=== PATIENT | male | born 1965 | race Hispanic/Latino ===

== ENCOUNTER 2018-02-07 20:11 | Emergency (ER) | payer MEDICARE, MEDICAID ==
[2018-02-07 20:58] LABS: #Eosinphils 0.2 thou/uL (0.0-0.7); #Lymphocytes 2.5 thou/uL (1.20-3.40); #Monocytes 0.6 thou/uL (0.11-0.59); %Basophils 0.8 % (0.0-1.0); %Eosinophils 3.6 % (0.0-10.0); %Lymphocytes 39.2 % (21.0-51.0); %Monocytes 9.2 % (0.0-10.0); %Neutrophils 47.3 % (42.0-75.0); Hemoglobin 15.6 g/dL (14.0-18.0); Mean Corpuscular HGB CONC 34.3 g/dL (32.0-36.0); Mean Corpuscular Hemoglobin 29.5 pg (27.0-31.0); Mean Corpuscular Volume 86.2 fL (78.0-98.0); Mean Platelet Volume 7.5 fL (7.4-10.4); Platelet Count 216 thou/uL (130-400); RBC Distribution Width 11.8 % (11.5-14.5); Red Blood Cell (RBC) Count 5.27 mill/uL (4.70-6.10); White Blood Cell (WBC) Count 6.4 thou/uL (4.8-10.8)
[2018-02-07 21:16] LABS: ALT (SGPT) 34 U/L (8-55); AST (SGOT) 25 U/L (5-34); Acetaminophen Less than 6.0 mcg/mL (10.0-30.0); Albumin 4.1 g/dL (3.5-5.0); Alcohol Less than 10 mg/dL (Less than 10); Alkaline Phosphatase 55 U/L (40-150); Anion Gap 13 mmol/L (10-20); BUN (Urea Nitrogen) 10 mg/dL (8.9-20.6); Bilirubin, Total 0.5 mg/dL (0.2-1.2); Calc. Creatinine Clearance 0 mL/min (70-130); Calcium 9.5 mg/dL (7.8-10.44); Carbon Dioxide 24 mmol/L (22-29); Chloride 103 mmol/L (98-107); Estimated GFR-MDRD 89; Globulin 3.2 g/dL (2.4-3.5); Glucose 266 mg/dL (70-105); Potassium 3.8 mmol/L (3.5-5.1); Protein, Total 7.3 g/dL (6.0-8.3); Salicylate Less than 8.0 mg/dL (15.0-30.0); Sodium 136 mmol/L (136-145)
[2018-02-07 22:52] LABS: Bilirubin Negative (Negative); Blood, Urine Negative (Negative); Clarity CLEAR (Clear); Glucose, Urine (Dipstick) >=1000 mg/dL (Negative); Leukocyte Negative (Negative); Nitrite Negative (Negative); Protein, Urine (Dipstick) Negative (Neg-Trace)
[2018-02-07 22:59] LABS: Amphetamine Not Detected (NotDetected); Barbiturates Screen Not Detected (NotDetected); Benzodiazepine Screen Not Detected (NotDetected); Cocaine Metabolite Screen Not Detected (NotDetected); Medtox Control Line Valid? VALID (VALID); Medtox Reader # READER 1; Methadone Not Detected (NotDetected); Methamphetamine Not Detected (NotDetected); Opiate Screen Not Detected (NotDetected); Oxycodone Screen Not Detected (NotDetected); Phencyclidine (PCP) Not Detected (NotDetected); THC/Cannabinoid Screen Detected (NotDetected); Tricyclic Screen Not Detected (NotDetected)
[2018-02-08] MEDS ORDERED: Insulin Regular 300 UNITS/3 ML VIAL ONE (08:40)
[2018-02-08] MEDS ORDERED: Divalproex Sodium 250 MG (DR) TAB PO SCH (09:00)
[2018-02-08] MEDS ORDERED: Divalproex Sodium DR 500 MG TAB PO SCH (09:00)
[2018-02-09] MEDS ORDERED: metFORMIN 500 MG TAB PO SCH ×2 (08:00→21:00)
[2018-02-09] MEDS ORDERED: Lisinopril 5 MG TAB PO SCH (09:00)
[2018-02-09] MEDS ORDERED: Insulin NPH/Reg Insulin Hm 300 UNITS/3 ML VIAL SC SCH (16:30)
[2018-02-09] MEDS ORDERED: Fenofibrate Nanocrystallized 145 MG TAB PO SCH (21:00)
[2018-02-09] MEDS ORDERED: Gabapentin 300 MG CAP PO SCH (21:00)
== END 2018-02-10 12:45 ==
LOC: ERS 20:11
DX: F23 Brief psychotic disorder (principal); E11.9 Type 2 diabetes mellitus without complications; E78.5 Hyperlipidemia, unspecified; I10 Essential (primary) hypertension; F41.9 Anxiety disorder, unspecified; F32.9 Major depressive disorder, single episode, unspecified; Z79.4 Long term (current) use of insulin; Z79.899 Other long term (current) drug therapy
CPT/HCPCS: 36415; 36416; 80053; 80306; 80307; 81003; 84443; 85025; 93005; J1815

== ENCOUNTER 2018-08-02 21:58 | Emergency (ER) | payer MEDICARE, MEDICAID ==
[2018-08-02 22:57] LABS: #Basophils 0.1 thou/uL (0.0-0.2); #Eosinphils 0.3 thou/uL (0.0-0.7); #Lymphocytes 2.1 thou/uL (1.20-3.40); #Monocytes 0.8 thou/uL (0.11-0.59); #Neutrophils 4.2 thou/uL (1.40-6.50); %Basophils 1.1 % (0.0-1.0); %Eosinophils 4.2 % (0.0-10.0); %Lymphocytes 27.7 % (21.0-51.0); %Monocytes 10.5 % (0.0-10.0); %Neutrophils 56.5 % (42.0-75.0); Hemoglobin 13.9 g/dL (14.0-18.0); Mean Corpuscular HGB CONC 34.2 g/dL (32.0-36.0); Mean Corpuscular Volume 84.8 fL (78.0-98.0); Platelet Count 197 thou/uL (130-400); Red Blood Cell (RBC) Count 4.79 mill/uL (4.70-6.10); White Blood Cell (WBC) Count 7.5 thou/uL (4.8-10.8)
[2018-08-02 23:06] LABS: Bilirubin Negative (Negative); Blood, Urine Negative (Negative); Clarity CLEAR (Clear); Glucose, Urine (Dipstick) 500 mg/dL (Negative); Leukocyte Negative (Negative); Nitrite Negative (Negative); Protein, Urine (Dipstick) Negative (Neg-Trace); Specific Gravity, Urine 1.034 (1.002-1.036); pH, Urine 7.5 (5.0-9.0)
[2018-08-02 23:16] LABS: ALT (SGPT) 19 U/L (8-55); AST (SGOT) 16 U/L (5-34); Alkaline Phosphatase 71 U/L (40-150); Anion Gap 14 mmol/L (10-20); BUN (Urea Nitrogen) 22 mg/dL (8.4-25.7); Bilirubin, Total 0.2 mg/dL (0.2-1.2); Calc. Creatinine Clearance 0 mL/min (70-130); Calcium 9.3 mg/dL (7.8-10.44); Carbon Dioxide 25 mmol/L (22-29); Chloride 101 mmol/L (98-107); Estimated GFR-MDRD 69; Globulin 2.7 g/dL (2.4-3.5); Glucose 384 mg/dL (70-105); Potassium 4.7 mmol/L (3.5-5.1); Protein, Total 6.7 g/dL (6.0-8.3); Sodium 135 mmol/L (136-145)
[2018-08-03] MEDS ORDERED: Insulin Regular 300 UNITS/3 ML VIAL ONE (00:18)
== END 2018-08-03 01:15 | disposition home or self-care (01) ==
LOC: ERS 21:58
DX: E11.65 Type 2 diabetes mellitus with hyperglycemia (principal); E78.5 Hyperlipidemia, unspecified; I10 Essential (primary) hypertension; F41.9 Anxiety disorder, unspecified; F32.9 Major depressive disorder, single episode, unspecified; F20.9 Schizophrenia, unspecified; F17.210 Nicotine dependence, cigarettes, uncomplicated; Z71.6 Tobacco abuse counseling; Z79.899 Other long term (current) drug therapy; Z79.4 Long term (current) use of insulin
CPT/HCPCS: 36415; 36416; 80053; 81003; 82010; 85025; 96361; 96374; 99406; J1815

== ENCOUNTER 2018-08-04 03:23 | Emergency (ER) | payer MEDICARE, MEDICAID ==
[2018-08-04] MEDS ORDERED: Insulin Regular 300 UNITS/3 ML VIAL ONE (03:46)
[2018-08-04 03:54] LABS: #Basophils 0.1 thou/uL (0.0-0.2); #Eosinphils 0.3 thou/uL (0.0-0.7); #Lymphocytes 2.2 thou/uL (1.20-3.40); #Monocytes 0.6 thou/uL (0.11-0.59); #Neutrophils 3.7 thou/uL (1.40-6.50); %Basophils 0.9 % (0.0-1.0); %Eosinophils 3.8 % (0.0-10.0); %Lymphocytes 32.3 % (21.0-51.0); %Monocytes 9.3 % (0.0-10.0); %Neutrophils 53.7 % (42.0-75.0); Hemoglobin 13.5 g/dL (14.0-18.0); Mean Corpuscular HGB CONC 35.4 g/dL (32.0-36.0); Mean Corpuscular Hemoglobin 29.8 pg (27.0-31.0); Mean Corpuscular Volume 84.4 fL (78.0-98.0); Mean Platelet Volume 8.2 fL (7.4-10.4); Platelet Count 195 thou/uL (130-400); RBC Distribution Width 11.9 % (11.5-14.5); Red Blood Cell (RBC) Count 4.54 mill/uL (4.70-6.10); White Blood Cell (WBC) Count 6.9 thou/uL (4.8-10.8)
[2018-08-04 04:07] LABS: ALT (SGPT) 22 U/L (8-55); AST (SGOT) 22 U/L (5-34); Albumin 3.8 g/dL (3.5-5.0); Alkaline Phosphatase 69 U/L (40-150); Anion Gap 10 mmol/L (10-20); BUN (Urea Nitrogen) 12 mg/dL (8.4-25.7); Bilirubin, Total 0.2 mg/dL (0.2-1.2); Calc. Creatinine Clearance 0 mL/min (70-130); Calcium 9.2 mg/dL (7.8-10.44); Carbon Dioxide 27 mmol/L (22-29); Chloride 99 mmol/L (98-107); Estimated GFR-MDRD 81; Globulin 2.8 g/dL (2.4-3.5); Glucose 427 mg/dL (70-105); Potassium 4.2 mmol/L (3.5-5.1); Protein, Total 6.6 g/dL (6.0-8.3); Sodium 132 mmol/L (136-145)
== END 2018-08-04 05:28 | disposition home or self-care (01) ==
LOC: ERS 03:23
DX: E11.65 Type 2 diabetes mellitus with hyperglycemia (principal); E78.5 Hyperlipidemia, unspecified; I10 Essential (primary) hypertension; F41.9 Anxiety disorder, unspecified; F32.9 Major depressive disorder, single episode, unspecified; F20.9 Schizophrenia, unspecified; F17.210 Nicotine dependence, cigarettes, uncomplicated; Z79.899 Other long term (current) drug therapy; Z79.4 Long term (current) use of insulin
CPT/HCPCS: 36415; 36416; 80053; 85025; 96361; 96374; J1815

== ENCOUNTER 2018-11-04 08:18 | Inpatient (IN) | payer MEDICARE, MEDICAID ==
[2018-11-04] MEDS ORDERED: Diltiazem 125 MG/25 ML ONE (08:38)
[2018-11-04] MEDS ORDERED: Aspirin Chewable 81 MG TAB ONE (08:38)
[2018-11-04] MEDS ORDERED: Enoxaparin Sodium 100 MG/ML SYRINGE ONE (08:38)
[2018-11-04 08:41] LABS: #Eosinphils 0.2 thou/uL (0.0-0.7); #Lymphocytes 2.1 thou/uL (1.20-3.40); #Monocytes 0.5 thou/uL (0.11-0.59); #Neutrophils 3.4 thou/uL (1.40-6.50); %Basophils 0.8 % (0.0-1.0); %Eosinophils 3.8 % (0.0-10.0); %Lymphocytes 33.5 % (21.0-51.0); %Monocytes 7.7 % (0.0-10.0); %Neutrophils 54.2 % (42.0-75.0); Hemoglobin 15.8 g/dL (14.0-18.0); Mean Corpuscular HGB CONC 34.2 g/dL (32.0-36.0); Mean Corpuscular Hemoglobin 28.7 pg (27.0-31.0); Mean Corpuscular Volume 83.9 fL (78.0-98.0); Mean Platelet Volume 8.1 fL (7.4-10.4); Platelet Count 166 thou/uL (130-400); RBC Distribution Width 12.3 % (11.5-14.5); White Blood Cell (WBC) Count 6.3 thou/uL (4.8-10.8)
--- NOTE | 2018-11-04 08:55 | RAD ---
EXAM: Portable chest PROVIDED CLINICAL HISTORY: Dyspnea COMPARISON: None FINDINGS: Cardiac and mediastinal silhouette is within normal limits. No focal consolidation, pleural fluid or pneumothorax evident. IMPRESSION: No evidence for an acute cardiopulmonary process.
[2018-11-04 08:58] LABS: INR-International Normal Ratio 0.9; Prothrombin Time 12.5 SEC (12.0-14.7)
[2018-11-04 08:59] LABS: PTT 32.6 SEC (22.9-36.1)
[2018-11-04 09:03] LABS: ALT (SGPT) 25 U/L (8-55); AST (SGOT) 14 U/L (5-34); Albumin 3.9 g/dL (3.5-5.0); Alkaline Phosphatase 88 U/L (40-150); Anion Gap 15 mmol/L (10-20); BUN (Urea Nitrogen) 15 mg/dL (8.4-25.7); Bilirubin, Total 0.4 mg/dL (0.2-1.2); CK (CPK) 99 U/L (30-200); Calc. Creatinine Clearance 0 mL/min (70-130); Carbon Dioxide 21 mmol/L (22-29); Chloride 97 mmol/L (98-107); Estimated GFR-MDRD 67; Globulin 3.1 g/dL (2.4-3.5); Potassium 3.9 mmol/L (3.5-5.1); Sodium 129 mmol/L (136-145)
[2018-11-04 09:05] LABS: Base Excess-Venous -3.6 mmol/L (-2.0 to 3.0); Bicarbonate (HCO3v) 22.4 mmol/L (22.0-28.0); CO2 Tension (PvCO2) 42.7 mmHg (40.0-50.0); Calcium, Ionized 1.14 mmol/L (See Comments:); Chloride 98 mmol/L (98-107); Hemoglobin - Calc 15.4 g/dL (14.0-18.0); Potassium 4.1 mmol/L (3.5-5.1); Sodium 132 mmol/L (138-145); T. Carbon Dioxide 23.7 mmol/L (22.0-28.0); vO2 Saturation-calc 82.3 % (60.0-85.0)
[2018-11-04 09:11] LABS: Glucose 603 mg/dL (70-105)
[2018-11-04] MEDS ORDERED: Ziprasidone 20 MG CAP ONE (09:12)
[2018-11-04 09:14] LABS: Acetaminophen Less than 6.0 mcg/mL (10.0-30.0); Alcohol Less than 10 mg/dL (Less than 10); Magnesium 1.6 mg/dL (1.6-2.6); Salicylate Less than 8.0 mg/dL (15.0-30.0)
[2018-11-04 09:25] LABS: Bilirubin Negative (Negative); Blood, Urine Negative (Negative); Clarity Clear (Clear); Glucose, Urine (Dipstick) Greater than 1000 mg/dL (Negative); Leukocyte Negative Leu/uL (Negative); Nitrite Negative (Negative); Protein, Urine (Dipstick) Negative (Neg-Trace); Urobilinogen Normal mg/dL (Less than 2)
[2018-11-04 09:29] LABS: Phosphorus 3.4 mg/dL (2.3-4.7)
[2018-11-04 09:38] LABS: Amphetamine Not Detected (NotDetected); Barbiturates Screen Not Detected (NotDetected); Benzodiazepine Screen Not Detected (NotDetected); Cocaine Metabolite Screen Not Detected (NotDetected); Medtox Control Line Valid? VALID (VALID); Medtox Reader # READER 1; Methadone Not Detected (NotDetected); Methamphetamine Not Detected (NotDetected); Opiate Screen Not Detected (NotDetected); Oxycodone Screen Not Detected (NotDetected); Phencyclidine (PCP) Not Detected (NotDetected); THC/Cannabinoid Screen Not Detected (NotDetected); Tricyclic Screen Not Detected (NotDetected)
[2018-11-04] MEDS ORDERED: Insulin Regular 300 UNITS/3 ML VIAL ONE (09:40)
[2018-11-04] MEDS ORDERED: Senokot S 8.6-50 MG TAB PO PRN (10:35)
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
[2018-11-04 11:40] VITALS: BMI 33.0
[2018-11-04] MEDS: Nicotine 21 MG PATCH TD SCH (11:44)
[2018-11-04] MEDS ORDERED: Diltiazem 125 MG in Sodium Chloride 0.9% 100 ML IVPB SCH (11:45)
[2018-11-04] MEDS ORDERED: Dextrose 50% Abboject 50 ML SYRINGE SLOW IVP PRN (11:54)
[2018-11-04] MEDS ORDERED: Dextrose 5% in Water 1,000 ML IV PRN (11:54)
[2018-11-04] MEDS ORDERED: Ziprasidone 20 MG CAP PO PRN (12:12)
[2018-11-04] MEDS: HumaLOG 300 UNITS/3 ML VIAL SC PRN ×2 (12:32→16:25)
[2018-11-04 13:28] LABS: Troponin I Less than 0.010 ng/mL (< 0.028)
[2018-11-04 14:00] LABS: Magnesium 1.7 mg/dL (1.6-2.6); Phosphorus 3.2 mg/dL (2.3-4.7)
[2018-11-04 15:36] LABS: Troponin I Less than 0.010 ng/mL (< 0.028)
[2018-11-04] MEDS: Atorvastatin Calcium 20 MG TAB PO SCH (20:16)
[2018-11-04] MEDS: Divalproex Sodium DR 500 MG TAB PO SCH (20:16)
[2018-11-04] MEDS: risperiDONE 3 MG TAB PO SCH (20:17)
[2018-11-04] MEDS ORDERED: HumuLIN 70/30 (300 UNITS/3 ML VIAL) SC SCH (21:00)
[2018-11-05] MEDS: HumaLOG 300 UNITS/3 ML VIAL SC PRN ×5 (00:21→20:27)
--- NOTE | 2018-11-05 05:41 | PDOC.FM ---
- Subjective Subjective: Patient doing well this morning. The dilt drip was stopped yesterday afternoon as his pulse was in the 60s, and it has maintained in the 60s-70s throughout the evening. His home risperdal and depakote were restarted last night; he's not due for his next invega shot until 11/09. Denies cp, palpitations. Apnea overnight likely related to sleep apnea, will recommend sleep study outpatient. Denies sob. - Objective Vital Signs & Weight: Vital Signs (12 hours) Temp Pulse Ox 11/04/18 20:00 98.2 F 100 Weight Weight 101.605 kg Most Recent Monitor Data Heart Rate from ECG 62 NIBP 107/65 NIBP BP-Mean 79 Respiration from ECG 6 SpO2 100 I&O: 11/03/18 11/04/18 11/05/18 06:59 06:59 06:59 Intake Total 826 Output Total 500 Balance 326 Result Diagrams: 11/05/18 08:18 11/05/18 08:18 EKG Reviewed by me: Yes (Normal sinus, 60s) Phys Exam - Physical Examination Constitutional: NAD HEENT: moist MMs, sclera anicteric Neck: supple, full ROM Respiratory: no wheezing, clear to auscultation bilateral Cardiovascular: RRR, no significant murmur Gastrointestinal: soft, non-tender Musculoskeletal: no edema, pulses present Neurological: normal sensation, moves all 4 limbs Lymphatic: no nodes Psychiatric: normal affect, A&O x 3 Skin: normal turgor, cap refill <2 seconds Dx/Plan (1) Atrial fibrillation with RVR Code(s): I48.91 - UNSPECIFIED ATRIAL FIBRILLATION Status: Acute (2) Diabetes type 2, uncontrolled Code(s): E11.65 - TYPE 2 DIABETES MELLITUS WITH HYPERGLYCEMIA Status: Acute (3) Schizophrenia Code(s): F20.9 - SCHIZOPHRENIA, UNSPECIFIED Status: Chronic (4) Tobacco abuse Code(s): Z72.0 - TOBACCO USE Status: Chronic (5) Marijuana abuse Code(s): F12.10 - CANNABIS ABUSE, UNCOMPLICATED Status: Chronic (6) Obesity Code(s): E66.9 - OBESITY, UNSPECIFIED Status: Acute Qualifiers: Body mass index: BMI 33.0-33.9 - Plan Plan: Patient is a 53M with PMHx of schizophrenia, DMII that is being admitted to telemetry for afib with rvr and hyperglycemia #Afib with RVR, likely paroxysmal afib -dilt drip was stopped yesterday afternoon as patient's pulse was in 60s -NSR this morning -trop neg x3 -BNP wnl 25.6 -CXR neg -Echo ordered, pending -cardiology, Dr. Quispe, consulted -patient is in IMCU on telemetry overflow. #Schizophrenia -was able to contact [facility] 11/04 and restarted patient on risperdal and depakote home meds. Not due for next invega shot until 11/09 -geodon prn #DMII, uncontrolled, with hyperglycemia -glucose 510 in ED, given 10u novolog -anion gap closed, pH 7.328 -restart home 70/30 with ISS, required 10 units this morning after receiving his 70/30 at 20:15pm last night -increase home 70/30 from 14u to 18u BID -hyperglycemia protocol -cc diet #HLD -continue home med #HTN -BP 90s-120s/50s-60s -will continue to monitor and consider restarting home lisinopril at later time #Tobacco Use -nicotine patch -counseled to quit #Marijuana Use -UDS negative at this time Diet: CC DVT: lovenox (received in ED) Code: Full Dispo: inpatient tele for new-onset afib with rvr workup and management, and hyperglycemia management Addendum - Attending - Attending Attestation Date/Time: 11/05/18 2904 I personally evaluated the patient and discussed the management with Dr. Wheeler. I agree with the History, Examination, Assessment and Plan documented above with any addition or exceptions noted below. Patient is back in sinus rhythm this morning. He is transitioned to po diltiazem by cardiology. Pt has requested an [facility] consult for possible hospitalization. We will make sure that his heart rate is controlled. Adjusting insulin for better control.
[2018-11-05] MEDS: HumuLIN 70/30 (300 UNITS/3 ML VIAL) SC SCH ×2 (08:18→20:25)
[2018-11-05 08:30] LABS: #Eosinphils 0.3 thou/uL (0.0-0.7); #Monocytes 0.4 thou/uL (0.11-0.59); #Neutrophils 2.9 thou/uL (1.40-6.50); %Basophils 0.5 % (0.0-1.0); %Eosinophils 4.9 % (0.0-10.0); %Lymphocytes 35.5 % (21.0-51.0); %Monocytes 6.9 % (0.0-10.0); %Neutrophils 52.2 % (42.0-75.0); Hemoglobin 15.4 g/dL (14.0-18.0); Mean Corpuscular HGB CONC 35.1 g/dL (32.0-36.0); Mean Corpuscular Hemoglobin 29.3 pg (27.0-31.0); Mean Corpuscular Volume 83.5 fL (78.0-98.0); Mean Platelet Volume 7.7 fL (7.4-10.4); Platelet Count 181 thou/uL (130-400); RBC Distribution Width 12.2 % (11.5-14.5); Red Blood Cell (RBC) Count 5.25 mill/uL (4.70-6.10); White Blood Cell (WBC) Count 5.5 thou/uL (4.8-10.8)
[2018-11-05] MEDS: Divalproex Sodium DR 500 MG TAB PO SCH ×2 (08:30→20:23)
[2018-11-05] MEDS: Enoxaparin Sodium 100 MG/ML SYRINGE SC SCH ×2 (08:30→20:23)
[2018-11-05] MEDS: risperiDONE 3 MG TAB PO SCH ×2 (08:31→20:24)
[2018-11-05 08:48] LABS: Anion Gap 12 mmol/L (10-20); BUN (Urea Nitrogen) 12 mg/dL (8.4-25.7); Calc. Creatinine Clearance 165 mL/min (70-130); Calcium 8.8 mg/dL (7.8-10.44); Carbon Dioxide 22 mmol/L (22-29); Chloride 102 mmol/L (98-107); Estimated GFR-MDRD Greater than 90; Glucose 274 mg/dL (70-105); Potassium 4.1 mmol/L (3.5-5.1); Sodium 132 mmol/L (136-145)
[2018-11-05] MEDS ORDERED: Aspirin 81 mg Enteric Coated Tablet PO SCH (09:00)
[2018-11-05] MEDS ORDERED: Enoxaparin Sodium 40 MG/0.4 ML SYRINGE SC SCH (09:00)
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
[2018-11-05] MEDS: Nicotine 21 MG PATCH TD SCH (10:42)
[2018-11-05] MEDS: Atorvastatin Calcium 20 MG TAB PO SCH (20:23)
[2018-11-06 04:53] VITALS: BP 105/65
[2018-11-06 06:28] LABS: #Eosinphils 0.4 thou/uL (0.0-0.7); #Lymphocytes 2.6 thou/uL (1.20-3.40); #Monocytes 0.6 thou/uL (0.11-0.59); #Neutrophils 3.4 thou/uL (1.40-6.50); %Basophils 0.2 % (0.0-1.0); %Lymphocytes 37.1 % (21.0-51.0); %Monocytes 8.6 % (0.0-10.0); Hemoglobin 16.6 g/dL (14.0-18.0); Mean Corpuscular HGB CONC 34.5 g/dL (32.0-36.0); Mean Corpuscular Hemoglobin 28.7 pg (27.0-31.0); Mean Corpuscular Volume 83.1 fL (78.0-98.0); Mean Platelet Volume 7.7 fL (7.4-10.4); Platelet Count 190 thou/uL (130-400); RBC Distribution Width 12.3 % (11.5-14.5); Red Blood Cell (RBC) Count 5.79 mill/uL (4.70-6.10); White Blood Cell (WBC) Count 7.1 thou/uL (4.8-10.8)
[2018-11-06 06:47] LABS: Anion Gap 11 mmol/L (10-20); BUN (Urea Nitrogen) 11 mg/dL (8.4-25.7); Calc. Creatinine Clearance 129 mL/min (70-130); Calcium 9.2 mg/dL (7.8-10.44); Carbon Dioxide 29 mmol/L (22-29); Chloride 101 mmol/L (98-107); Estimated GFR-MDRD 82; Glucose 169 mg/dL (70-105); Potassium 3.9 mmol/L (3.5-5.1); Sodium 137 mmol/L (136-145)
--- NOTE | 2018-11-06 08:24 | PDOC.FM ---
- Subjective Subjective: The patient was resting comfortably in his bed at the time of examination and in no acute distress. He reported feeling well without any overnight events, but this is subjective since his mental status is difficult to assess. The patient denied headaches, chest pain, shortness of breath, abdominal pain, or difficulty with elimination or voiding, but admitted to having "a hole in his back" and the need to "sit on electrical boxers in order to power [his] heart." - Objective Vital Signs & Weight: Vital Signs (12 hours) Temp Pulse Resp BP Pulse Ox 11/06/18 07:14 97 11/06/18 07:13 96.6 F L 11/06/18 04:00 97.8 F 68 16 105/65 100 11/06/18 00:00 98.2 F 68 15 96/68 100 Weight Weight 101.605 kg Most Recent Monitor Data Heart Rate from ECG 70 NIBP 119/69 NIBP BP-Mean 85 Respiration from ECG 35 SpO2 100 I&O: 11/05/18 11/06/18 11/07/18 06:59 06:59 06:59 Intake Total 1316 1460 Output Total 1075 3525 Balance 241 -2065 Result Diagrams: 11/06/18 06:03 11/06/18 06:03 Phys Exam - Physical Examination Constitutional: NAD HEENT: PERRLA, moist MMs, sclera anicteric, oral pharynx no lesions Neck: supple, full ROM Respiratory: no wheezing, no rales, no rhonchi, clear to auscultation bilateral Cardiovascular: RRR, no significant murmur, no rub Gastrointestinal: soft, non-tender, no distention, positive bowel sounds Musculoskeletal: no edema, pulses present Neurological: non-focal, moves all 4 limbs Deviation from normal: Continued delusions and magical thinking. Skin: no rash Dx/Plan (1) Atrial fibrillation with RVR Code(s): I48.91 - UNSPECIFIED ATRIAL FIBRILLATION Status: Acute (2) Diabetes type 2, uncontrolled Code(s): E11.65 - TYPE 2 DIABETES MELLITUS WITH HYPERGLYCEMIA Status: Acute (3) Schizophrenia Code(s): F20.9 - SCHIZOPHRENIA, UNSPECIFIED Status: Chronic (4) Tobacco abuse Code(s): Z72.0 - TOBACCO USE Status: Chronic - Plan Plan: 1. A-Fib with RVR -NSR on 11/06/18 -Troponins: Negative x3 -BNP: BNP: 25.6 -CXR: Negative -Echo: WNL on 11/05/18 -Cardiology: Seen by Dr. Quispe, coordination required following echo results -Diltiazem 500 mg PO BID -Patient is in IMCU on Telemetry overflow. 2. Schizophrenia -Continued delusions and magical thinking -[facility] was contacted on 11/04/18 - patient was restarted on home regimen of Risperidone and Depakote. -Next Invega shot due on 11/09/18 -Geodon 10 mg PRN -Will likely required extensive Case Management coordination prior to discharge -Explore patient willingness to seek inpatient mental health treatment 3. DMII, Uncontrolled -Blood Glucose was 510 in ED, given 10U Novolog -AG closed, pH 7.328 -Increased home regimen of 70/30 from 14u to 18u BID -Hyperglycemia Protocol -CC Diet 4. HLD -Continue home medication regimen 5. HTN -BP was 119/69 on 11/06/18 -Continue to monitor and consider restarting home Lisinopril regimen 6. Tobacco Abuse -Nicotine patch -Patient counseled on importance of tobacco cessation 7. Marijuana Use, Remote -UDS: Negative Diet: CC Diet DVT: Lovenox (received in ED) Code: Full Dispo: Inpatient Telemetry for new-onset A-Fib and hyperglycemia management. Await Echo results and coordinate with Cardiology and Case Management for discharge planning. Addendum - Attending - Attending Attestation Date/Time: 11/06/18 1109 I personally evaluated the patient and discussed the management with Dr. Gamble. I agree with the History, Examination, Assessment and Plan documented above with any addition or exceptions noted below. Patient doing well today. Currently in Afib but rate controlled. On Diltiazem. Anticoagulation being determined by cardiology as he is high bleeding risk due to med noncompliance associated with his schizophrenia. Awaiting Echo and further cardiology recs but nearing stability for discharge.
[2018-11-06] MEDS: risperiDONE 3 MG TAB PO SCH ×2 (09:19→19:57)
[2018-11-06] MEDS: Divalproex Sodium DR 500 MG TAB PO SCH ×2 (09:19→19:57)
[2018-11-06] MEDS: HumaLOG 300 UNITS/3 ML VIAL SC PRN ×3 (09:19→20:01)
[2018-11-06] MEDS: HumuLIN 70/30 (300 UNITS/3 ML VIAL) SC SCH ×2 (09:20→19:58)
[2018-11-06] MEDS: Enoxaparin Sodium 100 MG/ML SYRINGE SC SCH ×2 (09:20→19:57)
[2018-11-06] MEDS: Nicotine 21 MG PATCH TD SCH (11:18)
--- NOTE | 2018-11-06 15:08 | PRG ---
DATE OF SERVICE: 11/06/2018 SUBJECTIVE: Mr. Hsu feels well today. No chest pain or pressure. No shortness of breath. OBJECTIVE: VITAL SIGNS: Blood pressure 114/78, pulse 80s and regular. LUNGS: Clear. CARDIAC: Normal S1, normal S2. ABDOMEN: Soft and nontender. ASSESSMENT AND PLAN: 1. Paroxysmal atrial fibrillation. 2. CHADS-VASc 2 with diabetes and hypertension. 3. Serious psychiatric disorder of schizophrenia. I agree that the risk of anticoagulation is prohibitively high. Fortunately, he has only a CHADS-VASc 2 and not higher, therefore his embolic risk is relatively low. However, I think the risk of anticoagulation from either not taking the medicine properly or not taking at all outweighs the potential benefit. Certainly, Coumadin would not be feasible at all in this gentleman even Eliquis if he takes too much could be a life-threatening issue. Okay to me to release him home on NanoCompound CD 180 a day. I will be glad to see him on an as needed basis. Job ID: [id number]
[2018-11-06 19:57] VITALS: TEMP 97.1
[2018-11-06] MEDS: Atorvastatin Calcium 20 MG TAB PO SCH (19:57)
--- NOTE | 2018-11-07 11:24 | DIS ---
DATE OF ADMISSION: 11/04/2018 DATE OF DISCHARGE: 11/06/2018 RESIDENT: Bob Gamble MD ADMITTING ATTENDING: Ester Hopkins MD DISCHARGE ATTENDING: Khari Mccarthy MD CONSULTS: [facility], Cardiology. PROCEDURES: Echocardiogram. PRIMARY DIAGNOSIS: Atrial fibrillation with rapid ventricular response. SECONDARY DIAGNOSES: Schizophrenia, diabetes type 2 uncontrolled, tobacco abuse, marijuana abuse, and obesity. DISCHARGE MEDICATIONS: 1. Atorvastatin 20 mg p.o. at bedtime. 2. Diltiazem 180 mg p.o. 3. Depakote 500 mg p.o. b.i.d. 4. Humulin 70/30 of 18 units SC b.i.d. 5. Risperidone 3 mg p.o. b.i.d. DISCONTINUED MEDICATIONS: 1. Enoxaparin. 2. NicoDerm patch. 3. Senokot. HISTORY OF PRESENT ILLNESS/HOSPITAL COURSE: Mr. Mak Hsu is a 53-year-old male with a history of schizophrenia, uncontrolled diabetes, tobacco abuse, and marijuana abuse, who presented to the ED via EMS because he said that "his heart was feeling funny." He was found to have profound hyperglycemia in the ED as well as an EKG reading was suspicious for atrial fibrillation with rapid ventricular response. The patient was admitted to the [facility] and treated initially for his AFib with rapid ventricular response with diltiazem drip. Initial troponin values were negative and were ultimately trended to be negative x3. BNP was within normal limits of 25.6. Chest x-ray was read as negative. Echocardiogram also was negative. The patient was initially placed on telemetry, but was in the IMCU due to overflow issues. Cardiology was consulted and admitted that even though the patient had a negative echocardiogram, his AFib with rapid ventricular response would necessitate rate control, but this would be difficult based on the patient's profound schizophrenia. As such, it was agreed that the patient should be transported to an inpatient psychiatric facility in order to have both his mental health needs as well as his cardiac needs maintained with additional attention being paid to his hyperglycemia and uncontrolled diabetes type 2. On the day of discharge, white blood cell count was read as 7.1, hemoglobin count was 16.6, hematocrit was 48.2, and platelet count was 190. Complete metabolic profile was within normal limits with the exception of blood glucose, which was 169. The patient was evaluated by [facility] and transportation was arranged to [facility] in [place]. The patient was amenable to this plan, so that he could better control his chronic health conditions and the patient was transported without issue. DISPOSITION: Stable. DISCHARGE INSTRUCTIONS: LOCATION: [facility] in [place], [place]. DIET: Carb conscious. ACTIVITY: Ad tiara. FOLLOWUP: The patient was advised to follow up with [place] [facility] physicians if desired within 1 to 2 weeks. Job ID: [id number]
--- NOTE | 2018-11-08 05:40 | PQF ---
YOVANY MANDUJANO KATHERINE MD [id number] [facility]- [id number] CLINICAL DOCUMENTATION CLARIFICATION FORM: POST DISCHARGE Addendum to original discharge summary date: ____ Late entry note date: __ DATE: 11-08-2018 ATTN:Ester Mckeon Please exercise your independent, professional judgment in responding to the clarification form. Clinical indicators are provided on the bottom of this form for your review Can you please specify the clinical significance of the indicators below. Please check appropriate box(s): [ x ] Hyponatremia [ ] Insignificant laboratory finding [ ] Other diagnosis please specify: [ ] Unable to determine For continuity of documentation, please document condition throughout progress notes and discharge summary. Thank You. CLINICAL INDICATORS: HP 11/[address] Wheeler he started to feel palpitations in his chest this morning HP 11/[address] Wheeler Marijuana abuse HP 11/[address] Wheeler DM with hyperglycemia PN 11/[address] Quispe Serious psychiatric disorder of schizophrenia Laboratory: Sodium= 132 L(11/05), 129 L(11/04) RISK FACTORS: HP Dr. Wheeler- DM type II HP Dr. Wheeler-Obesity HP Dr. Wheeler- Hyperlipidemia TREATMENT: MAY 06 Dextrose 5% in water IV MAY 06 Sodium chloride IV (This form is maintained as a part of the permanent medical record) 2014 [employer] All Rights Reserved [email or web address] [not provided] [email or web address]
== END 2018-11-06 20:00 | disposition short-term general hospital (02) | DRG 638 ==
LOC: ERS 08:18 → IMCU/EMU 11:28
PROVIDERS: ADMIT Family Medicine; ATTEND Family Medicine
DX: E11.65 Type 2 diabetes mellitus with hyperglycemia (principal); E87.1 Hypo-osmolality and hyponatremia; I48.91 Unspecified atrial fibrillation; I10 Essential (primary) hypertension; E78.5 Hyperlipidemia, unspecified; E78.00 Pure hypercholesterolemia, unspecified; F41.9 Anxiety disorder, unspecified; F32.9 Major depressive disorder, single episode, unspecified; F17.210 Nicotine dependence, cigarettes, uncomplicated; F20.9 Schizophrenia, unspecified; E66.9 Obesity, unspecified; F12.10 Cannabis abuse, uncomplicated; Z60.2 Problems related to living alone; Z68.33 Body mass index [BMI] 33.0-33.9, adult; Z91.14 Patient's other noncompliance with medication regimen; Z88.8 Allergy status to other drugs, medicaments and biological substances
CPT/HCPCS: 36415; 36416; 71045; 80048; 80053; 80306; 80307; 81003; 82010; 82330; 82550; 82803; 83735; 83880; 84100; 84443; 84484; 85025; 85610; 85730; 93005; 93306; 94760; 96365; 96366; 96372; 96376; J1650; J1815

== ENCOUNTER 2018-12-28 09:12 | Emergency (ER) | payer MEDICARE, MEDICAID ==
[2018-12-28 09:50] LABS: #Eosinphils 0.3 thou/uL (0.0-0.7); #Lymphocytes 1.7 thou/uL (1.20-3.40); #Monocytes 0.5 thou/uL (0.11-0.59); %Basophils 0.6 % (0.0-1.0); %Lymphocytes 26.2 % (21.0-51.0); %Monocytes 7.3 % (0.0-10.0); %Neutrophils 61.9 % (42.0-75.0); Mean Corpuscular HGB CONC 34.8 g/dL (32.0-36.0); Mean Corpuscular Hemoglobin 29.2 pg (27.0-31.0); Mean Corpuscular Volume 83.9 fL (78.0-98.0); Mean Platelet Volume 7.9 fL (7.4-10.4); Platelet Count 176 thou/uL (130-400); RBC Distribution Width 11.9 % (11.5-14.5); Red Blood Cell (RBC) Count 5.14 mill/uL (4.70-6.10); White Blood Cell (WBC) Count 6.4 thou/uL (4.8-10.8)
[2018-12-28 10:15] LABS: ALT (SGPT) 19 U/L (8-55); AST (SGOT) 14 U/L (5-34); Albumin 3.9 g/dL (3.5-5.0); Alkaline Phosphatase 79 U/L (40-110); Anion Gap 11 mmol/L (10-20); BUN (Urea Nitrogen) 12 mg/dL (8.4-25.7); Bilirubin, Total 0.5 mg/dL (0.2-1.2); Calc. Creatinine Clearance 0 mL/min (70-130); Carbon Dioxide 31 mmol/L (22-29); Chloride 97 mmol/L (98-107); Estimated GFR-MDRD 81; Globulin 2.6 g/dL (2.4-3.5); Glucose 392 mg/dL (70-105); Potassium 4.2 mmol/L (3.5-5.1); Protein, Total 6.5 g/dL (6.0-8.3); Sodium 135 mmol/L (136-145)
== END 2018-12-28 11:31 | disposition home or self-care (01) ==
LOC: ERS 09:12
DX: E11.65 Type 2 diabetes mellitus with hyperglycemia (principal); E78.5 Hyperlipidemia, unspecified; E78.00 Pure hypercholesterolemia, unspecified; I10 Essential (primary) hypertension; F41.9 Anxiety disorder, unspecified; F32.9 Major depressive disorder, single episode, unspecified; F17.210 Nicotine dependence, cigarettes, uncomplicated; F20.9 Schizophrenia, unspecified; Z79.4 Long term (current) use of insulin; Z79.899 Other long term (current) drug therapy
CPT/HCPCS: 36415; 80053; 82010; 84484; 85025; 93005; 94760

== ENCOUNTER 2018-12-31 16:24 | Emergency (ER) | payer MEDICARE, MEDICAID ==
[2018-12-31 17:20] LABS: #Eosinphils 0.3 thou/uL (0.0-0.7); #Lymphocytes 2.2 thou/uL (1.20-3.40); #Monocytes 0.6 thou/uL (0.11-0.59); #Neutrophils 4.1 thou/uL (1.40-6.50); %Basophils 0.6 % (0.0-1.0); %Eosinophils 4.6 % (0.0-10.0); %Neutrophils 56.8 % (42.0-75.0); Hemoglobin 14.5 g/dL (14.0-18.0); Mean Corpuscular HGB CONC 34.9 g/dL (32.0-36.0); Mean Corpuscular Hemoglobin 29.5 pg (27.0-31.0); Mean Corpuscular Volume 84.4 fL (78.0-98.0); Platelet Count 183 thou/uL (130-400); RBC Distribution Width 12.2 % (11.5-14.5); Red Blood Cell (RBC) Count 4.93 mill/uL (4.70-6.10); White Blood Cell (WBC) Count 7.2 thou/uL (4.8-10.8)
[2018-12-31 17:39] LABS: ALT (SGPT) 17 U/L (8-55); AST (SGOT) 12 U/L (5-34); Acetaminophen Less than 6.0 mcg/mL (10.0-30.0); Albumin 3.9 g/dL (3.5-5.0); Alcohol Less than 10 mg/dL (Less than 10); Alkaline Phosphatase 78 U/L (40-110); Anion Gap 13 mmol/L (10-20); BUN (Urea Nitrogen) 12 mg/dL (8.4-25.7); Bilirubin, Total 0.4 mg/dL (0.2-1.2); Calc. Creatinine Clearance 0 mL/min (70-130); Calcium 9.4 mg/dL (7.8-10.44); Carbon Dioxide 26 mmol/L (22-29); Chloride 98 mmol/L (98-107); Estimated GFR-MDRD 85; Globulin 2.6 g/dL (2.4-3.5); Glucose 468 mg/dL (70-105); Potassium 4.1 mmol/L (3.5-5.1); Protein, Total 6.5 g/dL (6.0-8.3); Salicylate Less than 8.0 mg/dL (15.0-30.0); Sodium 133 mmol/L (136-145)
[2018-12-31 20:26] LABS: Bilirubin Negative (Negative); Blood, Urine Negative (Negative); Clarity Clear (Clear); Glucose, Urine (Dipstick) Greater than 1000 mg/dL (Negative); Leukocyte Negative Leu/uL (Negative); Nitrite Negative (Negative); Protein, Urine (Dipstick) Negative (Neg-Trace); Urobilinogen Normal mg/dL (Less than 2)
[2018-12-31 20:37] LABS: Amphetamine Not Detected (NotDetected); Barbiturates Screen Not Detected (NotDetected); Benzodiazepine Screen Not Detected (NotDetected); Cocaine Metabolite Screen Not Detected (NotDetected); Medtox Control Line Valid? VALID (VALID); Medtox Reader # READER 4; Methadone Not Detected (NotDetected); Methamphetamine Not Detected (NotDetected); Opiate Screen Not Detected (NotDetected); Oxycodone Screen Not Detected (NotDetected); Phencyclidine (PCP) Not Detected (NotDetected); THC/Cannabinoid Screen Not Detected (NotDetected); Tricyclic Screen Not Detected (NotDetected)
[2018-12-31] MEDS ORDERED: Insulin Regular 300 UNITS/3 ML VIAL ONE ×2 (20:54→20:57)
[2019-01-01] MEDS ORDERED: Divalproex Sodium 250 MG (DR) TAB ONE ×3 (00:41→01:02)
[2019-01-01] MEDS ORDERED: Zolpidem Tartrate 5 MG TAB PO SCH (01:00)
[2019-01-01] MEDS ORDERED: Atorvastatin Calcium 20 MG TAB PO SCH (01:00)
[2019-01-01] MEDS ORDERED: risperiDONE 3 MG TAB PO SCH (01:00)
[2019-01-01] MEDS ORDERED: metFORMIN 500 MG TAB PO SCH ×3 (01:00→17:00)
[2019-01-01] MEDS ORDERED: Lisinopril 10 MG TAB ONE (08:01)
[2019-01-01] MEDS ORDERED: risperiDONE 1 MG TAB ONE (08:01)
[2019-01-01] MEDS ORDERED: Insulin Glargine 15 UNITS in Pre-Filled Syringe 1 EACH SC SCH (09:00)
[2019-01-01] MEDS ORDERED: hydrOXYzine 25 MG TAB ONE (11:31)
== END 2019-01-01 15:16 ==
LOC: ERS 16:24
DX: F29 Unspecified psychosis not due to a substance or known physiological condition (principal); E11.9 Type 2 diabetes mellitus without complications; E78.5 Hyperlipidemia, unspecified; E78.00 Pure hypercholesterolemia, unspecified; I10 Essential (primary) hypertension; F41.9 Anxiety disorder, unspecified; F32.9 Major depressive disorder, single episode, unspecified; F20.9 Schizophrenia, unspecified; F17.210 Nicotine dependence, cigarettes, uncomplicated; Z79.899 Other long term (current) drug therapy; Z79.4 Long term (current) use of insulin
CPT/HCPCS: 36415; 36416; 80053; 80306; 80307; 81003; 84443; 85025; 93005; 94760; J1815